=== PATIENT | female | born 1965 | race Two or more races ===

== ENCOUNTER → 2024-08-26 | Outpatient (CLI) | payer MEDICARE, OTHER, SELFPAY ==
[2024-08-26 11:09] LABS: Collection Type, Urine Clean Catch
[2024-08-26 11:29] LABS: Basophils % (Auto) 1 % (0-2.5); Eosinophils # (Auto) 0.1 Thou/mm3 (0.0-0.5); Eosinophils % (Auto) 1 % (0-10); Hematocrit 39.3 % (36.0-46.0); Hemoglobin 13.4 g/dL (12.0-16.0); Immature Granulocytes % (Auto) 0 % (0-0); Immature Granulocytes Auto 0.03 Thou/mm3 (0.00-0.00); Lymphocytes # (Auto) 2.5 Thou/mm3 (1.0-4.8); Lymphocytes % (Auto) 30 % (10-50); Mean Corpuscular HGB Conc 34.1 g/dl (31.0-37.0); Mean Corpuscular Hemoglobin 29.9 pg (25.0-35.0); Mean Corpuscular Volume 88 fL (80-100); Monocytes # (Auto) 0.4 Thou/mm3 (0.0-0.8); Monocytes % (Auto) 5 % (0-12); Neutrophils # (Auto) 5.3 Thou/mm3 (1.8-7.7); Neutrophils % (Auto) 63 % (37-80); Nucleated Red Blood Cell % 0 /100 WBC (0); Platelet Count 248 Thou/mm3 (140-440); RDW Standard Deviation 40.6 fL (36.4-46.3); Red Blood Count 4.48 Miln/mm3 (4.00-5.20); White Blood Count 8.4 Thou/mm3 (3.6-11.0)
[2024-08-26 11:40] LABS: Glucose Estimated Average 318 mg/dL (80-131); Hemoglobin A1C 12.7 % Hgb (4.8-6.0)
[2024-08-26 11:42] LABS: Creatinine MALB Rnd Ur 37 mg/dL (30-125); Microalbumin Creat Ratio 32 mg/gCrea (<30); Microalbumin, Random Urine 12 mg/L (0-300)
[2024-08-26 11:52] LABS: Bilirubin,Urine Negative (Negative); Blood,Urine 3+ (Negative); Clarity,Urine Turbid (Clear/Hazy); Color,Urine Colorless (Lt Yel-Yel); Glucose, Urine 4+ (Negative); Ketones,Urine Negative (Negative); Leukocyte Esterase,Urine Positive (Negative); Nitrite,Urine Negative (Negative); Protein,Urine Negative (Neg - Trace); RBC,Urine 226 /hpf (0-3); Specific Gravity,Urine 1.036 (1.001-1.035); Squamous Epithelial Cell,Urine 7 /hpf (0-5); Urobilinogen,Urine Negative mg/dL (0.0-1.0); WBC,Urine 24 /hpf (0-5)
[2024-08-26 12:16] LABS: Alanine Aminotransferase < 7 U/L (10-49); Albumin, Serum 4.4 gm/dL (3.4-4.8); Albumin/Globulin Ratio 1.8 (1.2-2.2); Alkaline Phosphatase 125 U/L (46-116); Anion Gap 8 (7-16); Aspartate Amino Transferase < 8 U/L (0-34); BUN/Creatinine Ratio 23 Ratio (12-20); Bilirubin,Total 0.4 mg/dL (0.3-1.2); Blood Urea Nitrogen 16 mg/dL (9-23); Calcium 9.4 mg/dL (8.3-10.6); Calcium (Corrected) 9.4 mg/dL (8.5-10.1); Carbon Dioxide 23.7 mMol/L (20.0-31.0); Cardiac Risk Estimate 5.1 RATIO (3.7-5.6); Chloride 102 mMol/L (98-107); Cholesterol 228 mg/dL (132-200); Creatinine (Component) 0.7 mg/dL (0.6-1.3); Globulin 2.4 gm/dL (2.3-3.5); Glucose 300 mg/dL (74-106); HDL Cholesterol 45 mg/dL (40-60); LDL Cholesterol,Calculated 141 mg/dL (0-130); Osmolality,Calculated 280 (275-295); Potassium 4.2 mMol/L (3.4-5.1); Sodium 134 mMol/L (136-145); Thyroid Stimulating Hormone 0.93 uIU/mL (0.55-4.78); Total Protein 6.8 gm/dL (5.7-8.2); Triglycerides 212 mg/dL (30-150); eGFR > 60 See Note
== END | disposition home or self-care (01) ==
LOC: COPL 09:50
PROVIDERS: PCP Family Medicine; Referring Provider Family Medicine; Visit Provider Family Medicine
DX: Z00.00 Encounter for general adult medical examination without abnormal findings (principal); E11.65 Type 2 diabetes mellitus with hyperglycemia; E78.2 Mixed hyperlipidemia; I10 Essential (primary) hypertension; D64.9 Anemia, unspecified
CPT/HCPCS: 36415; 80053; 80061; 81001; 82043; 82570; 83036; 84443; 85025

== ENCOUNTER → 2024-09-11 | Outpatient (CLI) | payer MEDICARE, OTHER, SELFPAY ==
--- NOTE | 2024-09-11 13:00 | XR_ITS ---
Examination: Pelvic ultrasound, transabdominal, complete Technique: Transabdominal ultrasound of the pelvis performed using grayscale imaging Date and time of exam: September 11, 2024 1309 hours INDICATIONS: Postmenopausal bleeding with vaginal burning sensation pelvic pain beginning one year ago FINDINGS: Uterus 10.2 x 3.6 x 5.7 cm Fundal uterine calcification 10 x 7 x 11 mm Endometrial stripe 0.3 cm Right ovary obscured by bowel gas Left ovary 2.3 x 1.0 x 2.1 cm arterial flow IMPRESSION: Uterine calcified area of fibroid degeneration 10 x 7 x 11 mm Normal endometrial stripe 0.3 cm
--- NOTE | 2024-09-11 13:00 | XR_ITS ---
Examination: Transvaginal ultrasound of the pelvis, complete Technique: Transvaginal sonographic images pelvis performed using hu scale imaging Exam date and time: September 11, 2024 1311 hours INDICATIONS: Postmenopausal bleeding and burning sensation in the pelvis beginning one year ago. Uterus 7.7 x 3.7 x 4.5 cm anteverted Calcified area fundal fibroid degeneration 13 x 6 x 12 mm Endometrial stripe on this study is 0.5 cm Ovaries obscured by bowel gas IMPRESSION: Abnormally thickened endometrial stripe on this study, differential would include endometrial hyperplasia, early malignant neoplasm of the uterus Recommend MRI pelvis follow-up pre and postcontrast
== END | disposition home or self-care (01) ==
PROVIDERS: PCP Obstetrics & Gynecology; Referring Provider Obstetrics & Gynecology; Visit Provider Obstetrics & Gynecology
DX: D25.9 Leiomyoma of uterus, unspecified (principal); R93.89 Abnormal findings on diagnostic imaging of other specified body structures
CPT/HCPCS: 76830; 76856

== ENCOUNTER 2024-09-30 07:00 | Day surgery (SDC) | payer MEDICARE, OTHER, SELFPAY ==
[2024-09-29 15:01] VITALS: BMI 24.7
[2024-09-30] VITALS (8 sets, daily range): BP systolic 103–130; BP diastolic 56–82; PULSE 77–92; RESP 12–18; TEMP 36.8–37.1; O2SAT 93–100; BMI 25.1
[2024-09-30] MEDS: SODIUM CHLORIDE 0.9% 100 ML IV (09:12)
[2024-09-30] MEDS: ONDANSETRON INJ 2 MG/ML INJ 2 ML 4 MG IV (09:16)
[2024-09-30] MEDS: DiphenhydrAMINE INJ 50 MG/ML VIAL 25 MG IV (09:16)
[2024-09-30] MEDS: fentaNYL CIT INJ 50 mCg/ML AMP 2ML (ASD USE ONLY) IV (09:19)
[2024-09-30] MEDS: MIDAZOLAM INJ 1 MG/ML VIAL 2 ML (ASD USE ONLY) 2 MG IV (09:19)
== END 2024-09-30 10:08 | disposition home or self-care (01) ==
PROVIDERS: PCP Family Medicine; Referring Provider Specialist; Visit Provider Specialist
PROC: (CPT 45331; principal; 2024-09-30 11:45)
DX: K64.3 Fourth degree hemorrhoids (principal)
CPT/HCPCS: 45350; A4649; J1200; J2250; J2405; J3010; J7050

== ENCOUNTER 2025-01-15 08:16 | Emergency (ER) | payer MEDICARE, OTHER, SELFPAY ==
[2025-01-15 08:27] VITALS: BP 154/83; PULSE 98; RESP 18; TEMP 36.8; O2SAT 96; BMI 25.3
[2025-01-15 09:00] VITALS: PULSE 90; RESP 18; O2SAT 96
--- NOTE | 2025-01-15 09:36 | EDNOTE_ITS ---
ED General RME/HPI General Chief complaint: Back Pain/Injury Stated complaint: BACK PAIN Time Seen by Provider: 01/15/25 08:41 Arrival date/time: 01/15/25 08:16 RME / HPI RME / HPI narrative: 59 year old female presents to the ED for evaluation of waxing and waning left flank pain beginning last night with radiation to to left side of abdomen. Additionally complains of lower back pain that radiates up to her neck. Accompanied by feeling fatigued and nausea. Reportedly had experienced similar pain in the past with UTIs and concerned she may have one today. Denies fevers, chills, sweats. Denies vomiting, diarrhea, constipation. Denies dysuria, urinary frequency and urgency. Patient also complains of both rectal and vaginal pressure-like pain with vaginal/rectal bleeding which she states is an ongoing problem and being worked up by both GI and [employer]. Related Data Home Medications ?Medication ?Instructions ?Recorded ?Confirmed lisinopril 40 mg tablet 40 mg PO QDAY 10/24/1909/30 fezolinetant 45 mg tablet (Veozah) 45 mg PO QDAY 06/0709/30/24 sitagliptin phosphate 100 mg 100 mg PO QDAY 06/07/24 0 09/30/24 tablet (Januvia) tizanidine 6 mg capsule 6 mg PO TID PRN Muscle Spasm 06/07/24 09/30/24 zolpidem 10 mg tablet (Ambien) 10 mg PO HS PRN Sleep 1 09/30/24 Held on 09/30/24. Instructions: Resume on 10/01/24. lorazepam 2 mg tablet (Ativan) 2 mg PO BID PRN Anxiety 06/10/24 09/30/24 Held on 09/30/24. Instructions: Resume on 10/01/24. empagliflozin 25 mg tablet 25 mg PO QDAY 09/30/2409/19 (Jardiance) oxycodone-acetaminophen 10 mg-325 1 tab PO Q4H PRN moe n 09/30/24 09/30/24 mg tablet Held on 09/30/24. Instructions: Resume on 10/01/24. Previous Rx's ?Medication ?Instructions ?Recorded lancets 28 gauge (Advocate Lancet) #100 ea 06/11/24 pen needle, diabetic 29 gauge x #100 ea 06/11/24 1/2 (Ultra-Thin II Insulin Pen [place]) flash glucose scanning reader #1 ea 06/12/24 (FreeStyle Kirstin 2 Power) flash glucose sensor (FreeStyle #1 ea 06/12/24 Kirstin 2 Sensor kit) insulin glargine 100 unit/mL (3 12 unit (0.12 mL) subc ut QAM #15 mL 06/12/24 mL) subcutaneous pen (Lantus Solostar U-100 Insulin) cephalexin 500 mg capsule 500 mg PO QID #28 caps 01/15 Allergies Allergy/AdvReac Type Severity Reaction Status Date / Time Penicillins Allergy Severe Hives Verified 09/30/24 08:12 ketorolac AdvReac Severe FLUSHED, Verified 09/30/24 08:12 HIGH BP Review of Systems Review of Systems Narrative Review of Systems: GEN: No fever, no chills, no weight loss, +feeling fatigued EYES: No discharge, no visual changes, no pain HEENT: No ear pain, no congestion, no sore throat PULM: No shortness of breath, no cough, no congestion CV: No chest pain, no dyspnea on exertion, no palpitations GI: + nausea, no vomiting, no diarrhea, + pain, no constipation : No frequency, no urgency, no dysuria MUSC/SKEL: No joint pain, +back pain SKIN: No rash HEME/LYMPH: Pt reports hx of rectal and vaginal bleeding which is being worked up by GI and [employer]. NEURO: No weakness, no headache Past Medical History Past Medical History NEUROLOGIC: Positive Neurological Disorders (trigeminal neuralgia) CARDIAC: Positive Cardiac Disorders, Hypercholesterolemia and Hypertension RESPIRATORY: Positive Pneumonia GASTROINTESTINAL: Positive Gastrointestinal Disorders and Hemorrhoids MUSCULOSKELETAL: Positive Musculoskeletal Disorders, Arthritis, Rheumatoid Arthritis and Fibromyalgia ENDOCRINE: Positive Endocrine Disorders, Diabetes Mellitus Type 2 and Hypothyroidism PSYCHO/SOCIAL: Positive Depression and Anxiety Family History FAMILY HISTORY: Negative Family Psychiatric Problems, Family Respiratory Disorders, Family Cardiac Disorders, Family Gastrointestinal Problems, Family Cancer, Family Surgery or Family Anesthesia Reaction Surgical History SURGICAL: Positive Open Reduction Internal Fixation (RIGHT ANKLE) and Tubal Ligation Social History SMOKING STATUS: Current every day smoker SUBSTANCE USE: does not use ED Exam Narrative Physical exam: GENERAL APPEARANCE: alert and oriented x 4, well-developed, well-nourished, no acute distress HEENT: Normocephalic, atraumatic; pupils equal, round, reactive to light; EOMI; mucous membranes pink, moist; oropharynx clear NECK: Supple LUNGS: CTABL; no wheezes, no rales, no rhonchi HEART: Regular rate, regular rhythm; normal S1, S2; no murmurs ABDOMEN: mild distention; normal BS; soft, diffuse tenderness, no guarding, no rebound; no masses, no organomegaly, no hernia BACK: bilateral CVA tenderness, SI joint tenderness EXTREMITIES: atraumatic; no edema NEUROLOGIC: awake; alert and oriented x4; cranial nerves II-XII grossly intact; no focal sensory or motor deficits PSYCHIATRIC: appropriate mood and affect SKIN: warm, dry, normal color; no rashes Course Quality Measures none Orders Category Date Time Status CT Screening NOW Care 01/15/25 13:[address] abdomen pelvis w con Stat Exams 01/15/25 13:28 Completed CBC Stat Lab 01/15/25 10:06 Completed CMP [Comprehensive Metabolic Panel] Stat Lab 01/15/25 09:10 Completed UA, C/S IF [Urinalysis, C/S if Indicated] Stat Lab 01/15/25 10:05 Completed Urine Culture Stat Lab 01/15/25 10:05 Received HYDROcodone*/APAP 5/325 [[place] 5/325] Med 01/15/25 16:33 Discontinued 1 tab PO X1 ONE Insulin Regular Med 01/15/25 16:33 Discontinued 5 unit IV X1 ONE Morphine Inj Med 01/15/25 10:33 Discontinued 5 mg IVP X1 ONE Morphine Inj Med 01/15/25 13:29 Discontinued 5 mg IVP X1 ONE Ondansetron Inj [Zofran Inj] Med 01/15/25 10:33 Discontinued 4 mg IVP X1 ONE Ondansetron Inj [Zofran Inj] Med 01/15/25 13:29 Discontinued 4 mg IVP X1 ONE Sodium Chloride 0.9% 1000 ml [Ns] 1,000 ml Med 01/15/25 10:33 Discontinued IV 999 mls/hr cefTRIAXone/D5w 1gm IV premix [Rocephin/D5w 1gm IV Med 01/15/25 10:33 Discontinued premix] 1 gm in 50 ml IV X1 Vital Signs Vital signs: Vital Signs Temperature 98.2 F 01/15/25 08:27 Pulse Rate 98 01/15/25 08:27 Respiratory Rate 18 01/15/25 08:27 Blood Pressure 154/83 H 01/15/25 08:27 Pulse Oximetry (%) 96 01/15/25 08:27 Oxygen Delivery Method Room Air 01/15/25 08:27 Pulse ox is 96% on room air which is adequate. Discharge Plan Plan Patient Disposition: HOME (Self Care) Prescriptions/Referrals Prescriptions/Med Rec: New cephalexin 500 mg capsule 500 mg PO QID Qty: 28 0RF No Action lisinopril 40 mg Tablet 40 mg PO QDAY oxycodone-acetaminophen 10-325 mg tablet 1 tab PO Q4H PRN (Reason: pain) Jardiance 25 mg tablet 25 mg PO QDAY zolpidem [Ambien] 10 mg Tablet 10 mg PO HS PRN (Reason: Sleep) tizanidine 6 mg Capsule 6 mg PO TID PRN (Reason: Muscle Spasm) Januvia 100 mg Tablet 100 mg PO QDAY Veozah 45 mg Tablet 45 mg PO QDAY lorazepam [Ativan] 2 mg Tablet 2 mg PO BID PRN (Reason: Anxiety) (DME) lancets [Advocate Lancet] 28 gauge misc See Rx Instructions .Route Qty: 100 0RF Rx Instructions: As directed (DME) pen needle, diabetic [Ultra-Thin II Ins Pen [place]] 29 gauge x 1/2 needle See Rx Instructions .Route Qty: 100 0RF Rx Instructions: As directed insulin glargine [Lantus Solostar U-100 Insulin] 100 unit/mL (3 mL) insulin pen 12 unit subcut QAM Qty: 15 2RF (DME) FreeStyle Kirstin 2 Sensor Kit See Rx Instructions .Route Qty: 1 0RF Rx Instructions: As directed (DME) FreeStyle [place] 2 Power Misc See Rx Instructions .Route Qty: 1 0RF Rx Instructions: As directed Referrals: No Primary/Family,Physician [Primary Care Provider] - In 1 week Problem List Clinical Impression: UTI (urinary tract infection), Vesicoureteral reflux Patient/Caregiver Discharge Instructions Education Materials: ED CYSTITIS Female Adult Print Language: Bulgarian Stand Alone Forms: [employer]ohana Award Info., Patient Portal Info Letter MDM Narrative MDM hospital course: Milagros Ramon am scribing for and in the presence of Dr. Grullon. 1340: Patient reports her lower abdominal pain has returned. States the pain initially had improved with the Morphine. We reviewed all the results, analysis, and treatment plans. Patient is amenable to discharge. Strict return precautions were outlined. Patient was discharged in stable condition. Clinical Information Provided by patient Medical Records Reviewed [facility] I reviewed admission from 06/07/2024 through 06/13/2024 for lower GI bleed and sepsis secondary to pneumonia. I reviewed urine culture from 06/07/2024 which showed mixed lucia. I reviewed the CT abdomen/pelvis performed May 2024 which showed bilateral hydronephrosis which may represent mild bilateral congenital ureteropelvic junction obstruction. Meds/Rx Considered, not Ordered None Labs/Rad/Tests considered, not Ordered None Chronic Illness/Social Conditions which may negatively complicate care or outcome(s)-explain: None or not applicable EKG EKG not done Lab Interpretation Labs: interpreted by ct Lab(s) interpretation(s): Patient hyperglycemic. UA shows UTI. Imaging Imaging interpretation: see narrative above Radiology reports / interpretation(s): Ordering Physician: Carissa Grullon MD Date of Service: 01/15/25 Procedure(s): CT abdomen pelvis w con Accession Number(s): [id number] cc: Bentley Moreno MD; NO PRIMARY/FAMILY,PHYSICIAN; Carissa Grullon MD~ Examination: CT abdomen with intravenous contrast CT pelvis with intravenous contrast 2-D coronal reconstructions 2-D sagittal reconstructions Date and time of exam:January 15, 2025 1444 hours Comparison June 07, 2024 INDICATIONS: Lower abdominal pain with difficulty urinating today. CTDI: vol (mGy) 7.11 DLP: (mGycm) 108 Technique: Multiple axial sections of the abdomen and pelvis have been obtained. 64 slice high-resolution scanner used. 3 mm axial sections have been obtained, post intravenous injection 60 cc [id number] 2-D sagittal, coronal reconstructions obtained. Low dose protocols were performed. One or more of the following dose reduction techniques were used; automated exposure control, adjustment of the mA and/or KV according to patient size, use of iterative reconstruction technique. Findings: 30 mm liver lesion with peripheral nodular enhancement consistent with hemangioma Absent gallbladder Common bile duct 6 mm No pancreatic or adrenal mass Bilateral moderate hydronephrosis with wall thickening of the pelvicalyceal systems and ureters, no ureteral calculi No bowel obstruction No diverticulitis Uterine fundal areas of calcification of fibroid degeneration Urinary bladder wall thickening with pericystic inflammatory change Air in the urinary bladder Prominent osteopenia IMPRESSION: Recommend repeat hepatic sonography to confirm hemangioma right lobe of the liver compared with the June 08, 2024 exam Moderate bilateral hydronephrosis, wall thickening of the pelvicalyceal systems and ureters, urinary bladder wall thickening most consistent with urinary tract infection, vesicoureteral reflux and cystitis, the appearance should be clinically correlated Dictated By: Bentley Moreno MD Signed By: <Electronically signed by Bentley Moreno MD in [place]> 01/15/25 1505 Medication Administration(s) Medication Administration History Discontinued Medications Hydrocodone Bitart/Acetaminophen (Hydrocodone/Apap 5/325 Tablet) 1 tab PO X1 ONE Stop: 01/15/25 16:34 Last Admin: 01/15/25 16:58 Dose: 1 tab Documented By: ANGY Ceftriaxone Sodium/Dextrose (Rocephin/D5w 1gm Iv Premix) 1 gm in 50 mls @ 100 mls/hr IV X1 ONE Stop: 01/15/25 11:02 Last Infusion: 01/15/25 12:11 Dose: Infused Documented By: Admin: 01/15/25 10:56 Dose: 100 mls/hr Documented By: ANGY Sodium Chloride (Ns) 1,000 mls @ 999 mls/hr IV .Q1H1M ONE Stop: 01/15/25 11:33 Last Infusion: 01/15/25 12:00 Dose: Infused Documented By: Admin: 01/15/25 10:55 Dose: 999 mls/hr Documented By: ANGY Insulin Human Regular (Insulin Hum Regular 1 Unit/0.01 Ml (Per Unit)) 5 unit IV X1 ONE Stop: 01/15/25 16:34 Last Admin: 01/15/25 16:58 Dose: 5 unit Documented By: VG Co-signed By: EF Morphine Sulfate (Morphine Sulf Inj 10 Mg/Ml Vial) 5 mg IVP X1 ONE Stop: 01/15/25 10:34 Last Admin: 01/15/25 10:57 Dose: 5 mg Documented By: VG Morphine Sulfate (Morphine Sulf Inj 10 Mg/Ml Vial) 5 mg IVP X1 ONE Stop: 01/15/25 13:30 Last Admin: 01/15/25 13:48 Dose: 5 mg Documented By: ANGY Ondansetron HCl (Ondansetron Inj 2 Mg/Ml Inj 2 Ml) 4 mg IVP X1 ONE Stop: 01/15/25 10:34 Last Admin: 01/15/25 10:57 Dose: 4 mg Documented By: ANGY Ondansetron HCl (Ondansetron Inj 2 Mg/Ml Inj 2 Ml) 4 mg IVP X1 ONE Stop: 01/15/25 13:30 Last Admin: 01/15/25 13:47 Dose: 4 mg Documented By: ANGY Diagnosis Most likely dx, and/or detailed dx discussion: UTI Dispositon Disposition: Discharge Home
[2025-01-15 09:52] LABS: Alanine Aminotransferase 10 U/L (10-49); Albumin, Serum 4.5 gm/dL (3.4-4.8); Albumin/Globulin Ratio 1.7 (1.2-2.2); Alkaline Phosphatase 111 U/L (46-116); Anion Gap 15 (7-16); Aspartate Amino Transferase 10 U/L (0-34); BUN/Creatinine Ratio 9 Ratio (12-20); Bilirubin,Total 0.3 mg/dL (0.3-1.2); Blood Urea Nitrogen 7 mg/dL (9-23); Chloride 102 mMol/L (98-107); Creatinine (Component) 0.8 mg/dL (0.6-1.3); Estimated Creatinine Clearance 66.9 mL/min (>60); Globulin 2.7 gm/dL (2.3-3.5); Osmolality,Calculated 290 (275-295); Potassium 3.4 mMol/L (3.4-5.1); Sodium 136 mMol/L (136-145); Total Protein 7.2 gm/dL (5.7-8.2); eGFR > 60 See Note
[2025-01-15 09:53] LABS: Glucose 473 mg/dL (74-106)
[2025-01-15 10:08] LABS: Collection Type, Urine Clean Catch
[2025-01-15 10:12] LABS: Basophils % (Auto) 0 % (0-2.5); Eosinophils % (Auto) 0 % (0-10); Hematocrit 43.6 % (36.0-46.0); Hemoglobin 15.7 g/dL (12.0-16.0); Immature Granulocytes % (Auto) 0 % (0-0); Immature Granulocytes Auto 0.05 Thou/mm3 (0.00-0.00); Lymphocytes # (Auto) 1.2 Thou/mm3 (1.0-4.8); Lymphocytes % (Auto) 9 % (10-50); Mean Corpuscular Hemoglobin 30.5 pg (25.0-35.0); Mean Corpuscular Volume 85 fL (80-100); Monocytes # (Auto) 0.7 Thou/mm3 (0.0-0.8); Monocytes % (Auto) 5 % (0-12); Neutrophils # (Auto) 11.9 Thou/mm3 (1.8-7.7); Neutrophils % (Auto) 86 % (37-80); Nucleated Red Blood Cell % 0 /100 WBC (0); Platelet Count 312 Thou/mm3 (140-440); RDW Standard Deviation 37.1 fL (36.4-46.3); Red Blood Count 5.15 Miln/mm3 (4.00-5.20); White Blood Count 13.8 Thou/mm3 (3.6-11.0)
[2025-01-15 10:14] LABS: Bacteria,Urine Rare; Bilirubin,Urine Negative (Negative); Blood,Urine 3+ (Negative); Color,Urine Colorless (Lt Yel-Yel); Glucose, Urine 4+ (Negative); Ketones,Urine 2+ (Negative); Leukocyte Esterase,Urine Positive (Negative); Nitrite,Urine Negative (Negative); Protein,Urine 1+ (Neg - Trace); RBC,Urine 1051 /hpf (0-3); Specific Gravity,Urine 1.031 (1.001-1.035); Squamous Epithelial Cell,Urine 2 /hpf (0-5); Urobilinogen,Urine Negative mg/dL (0.0-1.0); WBC,Urine 132 /hpf (0-5)
[2025-01-15 10:29] LABS: Clarity,Urine Hazy (Clear/Hazy); Culture Indicated,Urine Yes
[2025-01-15 10:36] VITALS: BP 164/90; PULSE 96; RESP 18; TEMP 36.7; O2SAT 100
[2025-01-15] MEDS: SODIUM CHLORIDE 0.9% 1000 ML 1,000 ML 999 ML IV (10:55)
[2025-01-15] MEDS: cefTRIAXone/D5w 1gm IV premix 1 GM/50 ML BAG IV (10:56)
[2025-01-15] MEDS: ONDANSETRON INJ 2 MG/ML INJ 2 ML 4 MG IVP ×2 (10:57→13:47)
[2025-01-15] MEDS: MORPHINE SULF INJ 10 MG/ML VIAL 5 MG IVP ×2 (10:57→13:48)
--- NOTE | 2025-01-15 13:00 | PC.NURSE ---
went to d/c pt. pt refusing d/c and requesting imaging for pelvic pain. provider notified.
--- NOTE | 2025-01-15 13:28 | XR_ITS ---
Examination: CT abdomen with intravenous contrast CT pelvis with intravenous contrast 2-D coronal reconstructions 2-D sagittal reconstructions Date and time of exam:January 15, 2025 1444 hours Comparison June 07, 2024 INDICATIONS: Lower abdominal pain with difficulty urinating today. CTDI: vol (mGy) 7.11 DLP: (mGycm) 108 Technique: Multiple axial sections of the abdomen and pelvis have been obtained. 64 slice high-resolution scanner used. 3 mm axial sections have been obtained, post intravenous injection 60 cc Isovue-370 2-D sagittal, coronal reconstructions obtained. Low dose protocols were performed. One or more of the following dose reduction techniques were used; automated exposure control, adjustment of the mA and/or KV according to patient size, use of iterative reconstruction technique. Findings: 30 mm liver lesion with peripheral nodular enhancement consistent with hemangioma Absent gallbladder Common bile duct 6 mm No pancreatic or adrenal mass Bilateral moderate hydronephrosis with wall thickening of the pelvicalyceal systems and ureters, no ureteral calculi No bowel obstruction No diverticulitis Uterine fundal areas of calcification of fibroid degeneration Urinary bladder wall thickening with pericystic inflammatory change Air in the urinary bladder Prominent osteopenia IMPRESSION: Recommend repeat hepatic sonography to confirm hemangioma right lobe of the liver compared with the June 08, 2024 exam Moderate bilateral hydronephrosis, wall thickening of the pelvicalyceal systems and ureters, urinary bladder wall thickening most consistent with urinary tract infection, vesicoureteral reflux and cystitis, the appearance should be clinically correlated
[2025-01-15 14:05] VITALS: BP 178/97; PULSE 98; RESP 16; TEMP 36.8; O2SAT 97
[2025-01-15] MEDS: HYDROcodone/APAP 5/325 TABLET 1 TAB PO (16:58)
[2025-01-15] MEDS: INSULIN HUM REGULAR 1 UNIT/0.01 ML (PER UNIT) 5 UNIT IV (16:58)
[2025-01-15 17:11] VITALS: BP 149/62; PULSE 95; RESP 18; TEMP 36.6; O2SAT 98
== END 2025-01-15 17:12 | disposition home or self-care (01) ==
PROVIDERS: Emergency Provider Emergency Medicine
DX: N39.0 Urinary tract infection, site not specified (principal); N13.70 Vesicoureteral-reflux, unspecified; N13.30 Unspecified hydronephrosis
CPT/HCPCS: 36415; 74177; 80053; 81001; 85025; 87077; 87086; 87186; 96365; 96375; 96376; 99285; A4649; J0696; J1815; J2270; J2405; J7030; Q9967; A9270

== ENCOUNTER → 2025-01-26 | Outpatient (CLI) | payer MEDICARE, OTHER, SELFPAY ==
--- NOTE | 2025-01-26 10:00 | XR_ITS ---
Examination: Screening digital mammography, bilateral Computer aided detection 3-D breast Tomosynthesis, bilateral Date and time of exam: January 26, 2025 0958 hours Compared to mammograms dating to September 28, 2008 Indication: Screening Technique: Nonmagnified MLO, CC views of the breasts to been obtained, reconstructed from 3-D Tomosynthesis images. R2 computer aided detection program utilized for evaluation of suspicious masses and/or abnormal calcifications. 3-D Tomosynthesis images obtained. Findings: The breasts are heterogeneously dense, which may obscure small masses Benign calcifications. No interval suspicious masses Impression: BI-RADS category II: Benign Findings. Recommend 1 year follow-up mammogram.
== END | disposition home or self-care (01) ==
LOC: CDIM 09:42
PROVIDERS: Referring Provider Family Medicine; Visit Provider Family Medicine
DX: Z12.31 Encounter for screening mammogram for malignant neoplasm of breast (principal); R92.1 Mammographic calcification found on diagnostic imaging of breast
CPT/HCPCS: 77063; 77067

== ENCOUNTER 2025-05-17 11:41 | Emergency (ER) | payer MEDICARE, OTHER, SELFPAY ==
--- NOTE | 2025-05-17 12:05 | XR_ITS ---
EXAMINATION: Ankle, right 3 views . Technique: Ankle AP, oblique, lateral 3 views Date and time of exam: May 17, 2025, 1222 hours INDICATIONS: Injury to the ankle today, ankle pain. FINDINGS: Old bimalleolar fractures No acute fracture Significant osteoarthritis tibiotalar joint IMPRESSION: No acute fracture
[2025-05-17 12:06] VITALS: BP 145/80; PULSE 96; RESP 18; TEMP 36.9; O2SAT 99
--- NOTE | 2025-05-17 12:10 | PD.EDFALL ---
ED Fall Injury RME/HPI General Chief Complaint: Fall Stated Complaint: FALL, R) LEG PAIN/SWELLING Time Seen by Provider: 05/17/25 11:55 Source: patient Arrival date/time: 05/17/25 11:41 60-year-old female with a history of type 2 diabetes, hypertension presents to the emergency room with a chief complaint of right ankle tenderness and swelling after a ground-level fall that occurred yesterday afternoon. Patient denies any head trauma. Mode of arrival: ambulatory Limitations: no limitations Related Data Home Medications ?Medication ?Instructions ?Recorded ?Confirmed lisinopril 40 mg tablet 40 mg PO QDAY 10/24/19 09/30/24 fezolinetant 45 mg tablet (Veozah) 45 mg PO QDAY 06/07/24 09/30/24 sitagliptin phosphate 100 mg 100 mg PO QDAY 06/07/24 09/30/24 tablet (Januvia) tizanidine 6 mg capsule 6 mg PO TID PRN Muscle Spasm 06/07/24 09/30/24 zolpidem 10 mg tablet (Ambien) 10 mg PO HS PRN Sleep 06/07/24 09/30/24 Held on 09/30/24. Instructions: Resume on 10/01/24. lorazepam 2 mg tablet (Ativan) 2 mg PO BID PRN Anxiety 06/10/24 09/30/24 Held on 09/30/24. Instructions: Resume on 10/01/24. empagliflozin 25 mg tablet 25 mg PO QDAY 09/30/24 09/30/24 (Jardiance) oxycodone-acetaminophen 10 mg-325 1 tab PO Q4H PRN pain 09/30/24 09/30/24 mg tablet Held on 09/30/24. Instructions: Resume on 10/01/24. Previous Rx's ?Medication ?Instructions ?Recorded lancets 28 gauge (Advocate Lancet) #100 ea 06/11/24 pen needle, diabetic 29 gauge x #100 ea 06/11/24 1/2 (Ultra-Thin II Insulin Pen Frakes) flash glucose scanning reader #1 ea 06/12/24 (FreeStyle Kirstin 2 [place]) flash glucose sensor (FreeStyle #1 ea 06/12/24 Kirstin 2 Sensor kit) insulin glargine 100 unit/mL (3 12 unit (0.12 mL) subcut QAM #15 mL 06/12/ mL) subcutaneous pen (Lantus Solostar U-100 Insulin) cephalexin 500 mg capsule 500 mg PO QID #28 caps 01/15/25 Allergies Allergy/AdvReac Type Severity Reaction Status Date / Time Penicillins Allergy Severe Hives Verified 05/17/25 11:45 ketorolac AdvReac Severe FLUSHED, Verified 05/17/25 11:45 HIGH BP Review of Systems Review of Systems Systems Reviewed: All systems reviewed, normal except as documented Constitutional Constitutional: Reports system reviewed and no additional complaints, except as documented, Denies fatigue, Denies fever(s), Denies headache(s) and Denies weakness Eyes Eyes: Reports system reviewed and no additional complaints, except as documented, Denies blurry vision and Denies change in vision ENT Ears, Nose, Mouth, and Throat: Reports system reviewed and no additional complaints, except as documented, Denies otalgia, Denies headache(s), Denies nasal congestion, Denies throat swelling and Denies vertigo Cardiovascular Cardiovascular: Reports system reviewed and no additional complaints, except as documented, Denies chest pain, Denies dyspnea and Denies dyspnea on exertion Respiratory Respiratory: Reports system reviewed and no additional complaints, except as documented, Denies chest congestion, Denies cough, Denies dyspnea, Denies dyspnea on exertion and Denies wheezing Gastrointestinal Gastrointestinal: Reports system reviewed and no additional complaints, except as documented, Denies abdominal pain, Denies cramping, Denies nausea and Denies vomiting Genitourinary Genitourinary: Reports system reviewed and no additional complaints, except as documented Musculoskeletal Musculoskeletal: Reports system reviewed and no additional complaints, except as documented, Reports arthralgias, Denies back pain, Reports joint swelling and Reports limited range of motion Integumentary/Breasts Skin/Breast: Reports system reviewed and no additional complaints, except as documented and Denies wounds Neurologic Neurologic: Reports system reviewed and no additional complaints, except as documented, Denies confusion, Denies headache(s), Denies lack of coordination, Denies vertigo and Denies weakness Psychiatric Psychiatric: Reports system reviewed and no additional complaints, except as documented, Denies anxiety, Denies confusion, Denies depression, Denies paranoia, Denies suicidal ideation and Denies tactile hallucinations Endocrine Endocrine: Reports system reviewed and no additional complaints, except as documented and Denies fatigue Hematologic/Lymphatic Hematologic/Lymphatic: Reports system reviewed and no additional complaints, except as documented and Denies lymphadenopathy Allergic/Immunologic Allergic/Immunologic: Reports system reviewed and no additional complaints, except as documented, Denies throat swelling, Denies urticaria and Denies wheezing Past Medical History Past Medical History NEUROLOGIC: Positive Neurological Disorders; Negative Seizures CARDIAC: Positive Hypercholesterolemia and Hypertension; Negative Cardiac Disorders or Congestive Heart Failure RESPIRATORY: Positive Pneumonia; Negative Chronic Obstructive Pulmonary Disease (COPD) or Asthma GASTROINTESTINAL: Positive Gastrointestinal Disorders and Hemorrhoids GENITOURINARY: Negative Genitourinary Disorders or Renal Disease MUSCULOSKELETAL: Positive Musculoskeletal Disorders, Arthritis, Rheumatoid Arthritis and Fibromyalgia ENDOCRINE: Positive Endocrine Disorders, Diabetes Mellitus Type 2 and Hypothyroidism; Negative Diabetes Mellitus Type 1 HEMATOLOGIC: Negative Blood Disorders or Sickle Cell Disease PSYCHO/SOCIAL: Positive Depression and Anxiety OTHER HISTORY: Negative Autoimmune Disease, Blood Transfusions or Anesthesia Reactions Family History FAMILY HISTORY: Negative Family Psychiatric Problems, Family Respiratory Disorders, Family Cardiac Disorders, Family Gastrointestinal Problems, Family Cancer, Family Surgery or Family Anesthesia Reaction Surgical History SURGICAL: Positive Open Reduction Internal Fixation and Tubal Ligation Social History SMOKING STATUS: Current every day smoker SUBSTANCE USE: does not use ED Exam General Limitations: Present no limitations General appearance: Present alert and in no apparent distress Head Head exam: Present atraumatic Eye Eye exam: Present normal appearance, PERRL and EOMI ENT ENT exam: Present normal exam, normal oropharynx and mucous membranes moist Neck Neck exam: Present normal inspection, full ROM and trachea midline Chest Chest inspection: Present normal inspection and symmetric chest wall rise Respiratory Respiratory exam: Present normal lung sounds bilaterally Cardiovascular Cardiovascular exam: Present regular rate, normal rhythm and normal heart sounds Abdominal Exam Abdominal exam: Present soft and normal bowel sounds Extremities Exam Extremities exam: Present normal inspection and full ROM Expanded Lower Extremity Exam Hip/Pelvis exam: Present normal inspection Upper leg exam: Present normal inspection Knee exam: Present normal inspection Lower leg exam: Present normal inspection Ankle exam: Present normal inspection, tenderness and swelling Gait: observed and limited by pain Back Exam Back exam: Present normal inspection and full ROM Neurological Exam Neurological exam: Present alert, oriented X3 and CN II-XII intact Psychiatric Psychiatric exam: Present normal affect and normal mood Skin Skin exam: Present warm, dry, intact and normal color Course Quality Measures none Orders Category Date Time Status XR ankle comp RT min 3V Stat Exams 05/17/25 12:05 Completed Acetaminophen Tab [Tylenol Tab] Med 05/17/25 12:05 Discontinued 650 mg PO X1 ONE Vital Signs Vital signs: Vital Signs Temperature 98.5 F 05/17/25 12:06 Pulse Rate 96 05/17/25 12:06 Respiratory Rate 18 05/17/25 12:06 Blood Pressure 145/80 H 05/17/25 12:06 Pulse Oximetry (%) 99 05/17/25 12:06 Oxygen Delivery Method Room Air 05/17/25 12:06 Fall MDM Narrative MDM Narrative:: 60-year-old female with a history of type 2 diabetes, hypertension presents to the emergency room with a chief complaint of right ankle tenderness and swelling after a ground-level fall that occurred yesterday afternoon. Patient denies any head trauma. Patient is hemodynamically stable and in no apparent distress Physical examination shows tenderness and swelling to the patient's right ankle. Patient states she is able to ambulate but is having difficulty and some limited range of motion. X-ray of the ankle was completed and was negative for any acute fracture or dislocation Patient was discharged and educated to follow-up with primary care provider in the next 24 to 48 hours and return to the emergency room for any evidence of worsening signs or symptoms Patient data External records reviewed:: [facility] previous records Clinical information provided by:: patient Social determinants that could affect healthcare access:: none Patient has the following chronic illnesses:: No chronic illness How is presenting disease/condition affected by chronic disease/condition?: no chronic disease Evaluation data The following diagnostics were reviewed and interpreted by me:: lab results and radiology exam(s) Lab and/or radiology exams considered but not ordered:: Labs and radiology exams considered and ordered Interpretation Summary: X-ray ankle-FINDINGS: Old bimalleolar fractures No acute fracture Significant osteoarthritis tibiotalar joint IMPRESSION: No acute fracture Medications / Prescriptions Medications or Prescriptions considered but not ordered:: Medication given Medication administrations:: Medication Administration History Discontinued Medications Acetaminophen (Acetaminophen 325 Mg Tablet) 650 mg PO X1 ONE Stop: 05/17/25 12:06 Last Admin: 05/17/25 12:12 Dose: 650 mg Documented By: Medication given Consultations Consultation(s) initiated? (list below): No Diagnosis Fall Differential Diagnosis: other (Ankle fracture/ankle dislocation/sprain or strain of ankle) Most likely diagnosis given after review of the tests above:: Ankle sprain strain Admission Indicated Admission indicated?: not indicated Admission Request Was there a request for admission?: No Disposition Plan Disposition Plan: Discharge Discharge Attestation Discharge Attestation: The patient and all family members were given an opportunity to ask questions and understood the discharge instructions. Discharge instructions specifically effects, indications for sooner follow up or return to the emergency department, and the expected course of current diagnosis. Patient condition: Stable Discharge Plan Plan Patient Disposition: HOME (Self Care) Discharge Disposition comment: Stable Prescriptions/Referrals Prescriptions/Med Rec: No Action lisinopril 40 mg Tablet 40 mg PO QDAY oxycodone-acetaminophen 10-325 mg tablet 1 tab PO Q4H PRN (Reason: pain) Jardiance 25 mg tablet 25 mg PO QDAY cephalexin 500 mg capsule 500 mg PO QID Qty: 28 0RF zolpidem [Ambien] 10 mg Tablet 10 mg PO HS PRN (Reason: Sleep) tizanidine 6 mg Capsule 6 mg PO TID PRN (Reason: Muscle Spasm) Januvia 100 mg Tablet 100 mg PO QDAY Veozah 45 mg Tablet 45 mg PO QDAY lorazepam [Ativan] 2 mg Tablet 2 mg PO BID PRN (Reason: Anxiety) (DME) lancets [Advocate Lancet] 28 gauge misc See Rx Instructions .Route Qty: 100 0RF Rx Instructions: As directed (DME) pen needle, diabetic [Ultra-Thin II Ins Pen Frakes] 29 gauge x 1/2 needle See Rx Instructions .Route Qty: 100 0RF Rx Instructions: As directed insulin glargine [Lantus Solostar U-100 Insulin] 100 unit/mL (3 mL) insulin pen 12 unit subcut QAM Qty: 15 2RF (DME) FreeStyle Kirstin 2 Sensor Kit See Rx Instructions .Route Qty: 1 0RF Rx Instructions: As directed (DME) FreeStyle Kirstin 2 [place] Misc See Rx Instructions .Route Qty: 1 0RF Rx Instructions: As directed Referrals: Miquel Giordano MD [Primary Care Provider, Family Practice] - In 1 week Problem List Clinical Impression: Sprain and strain of ankle Patient/Caregiver Discharge Instructions Education Materials: ED Ankle Sprain (Adult) Additional Instructions: Please follow-up with your primary care provider in the next 24 to 48 hours X-ray of the ankle was completed and was negative for any acute fractures or dislocation For any evidence of worsening signs or symptoms return to emergency room immediately Print Language: Wallisian Stand Alone Forms: Yohana Award Info., Work/School Release, Patient Portal Info Letter PA/GROUNDS MAINTENANCE SUPERVISOR Supervising Physician PA/GROUNDS MAINTENANCE SUPERVISOR Supervising Physician: Dr. Hills
[2025-05-17] MEDS: ACETAMINOPHEN 325 MG TABLET 650 MG PO (12:12)
== END 2025-05-17 13:29 | disposition home or self-care (01) ==
PROVIDERS: Emergency Provider Nurse Practitioner Family; PCP Family Medicine
DX: S93.401A Sprain of unspecified ligament of right ankle, initial encounter (principal); S96.911A Strain of unspecified muscle and tendon at ankle and foot level, right foot, initial encounter; W18.30XA Fall on same level, unspecified, initial encounter
CPT/HCPCS: 73610; 99283; A9270

== ENCOUNTER 2025-06-18 11:12 | Outpatient (AMB) | payer MEDICARE, SELFPAY ==
--- NOTE | 2025-06-18 11:26 | GYNCLNT_ITS ---
Vital Signs 06/18/25 11:28 Height 1.6 m Height Method Stated Weight 64.467 kg Weight Measurement Method Standing Scale BMI 25.2 BP 124/77 Blood Pressure Source Automatic Cuff Blood Pressure Location Right Upper Arm Position Sitting Respiration 18 Pulse 116 H Pulse Source Monitor Temp 98.7 F Temp Source Temporal Artery Scan Pulse Oximetry (%) 99 Oxygen Delivery Method Room Air Allergies/Home Meds Allergies & Medications Allergies Penicillins Allergy (Severe, Verified 06/18/25 11:30) Hives ketorolac Adverse Reaction (Severe, Verified 06/18/25 11:30) FLUSHED, HIGH BP Medication Reconciliation lisinopril 40 mg tablet 40 mg PO QDAY 10/24/19 [History Confirmed 06/18/25] fezolinetant 45 mg tablet (Veozah) 45 mg PO QDAY 06/07/24 [History Confirmed 06/18/25] sitagliptin phosphate 100 mg tablet (Januvia) 100 mg PO QDAY 06/07/24 [History Confirmed 06/18/25] tizanidine 6 mg capsule 6 mg PO TID PRN Muscle Spasm 06/07/24 [History Confirmed 06/18/25] zolpidem 10 mg tablet (Ambien) 10 mg PO HS PRN Sleep 06/07/24 [History Confirmed 06/18/25] Held on 09/30/24. Instructions: Resume on 10/01/24. lorazepam 2 mg tablet (Ativan) 2 mg PO BID PRN Anxiety 06/10/24 [History Confirmed 06/18/25] Held on 09/30/24. Instructions: Resume on 10/01/24. lancets 28 gauge (Advocate Lancet) #100 ea 06/11/24 [Rx Confirmed 06/18/25] pen needle, diabetic 29 gauge x 1/2 (Ultra-Thin II Insulin Pen [place]) #100 ea 06/11/24 [Rx Confirmed 06/18/25] flash glucose scanning reader (FreeStyle Kirstin 2 [place]) #1 ea 06/12/24 [Rx Confirmed 06/18/25] flash glucose sensor (FreeStyle Kirstin 2 Sensor kit) #1 ea 06/12/24 [Rx Confirmed 06/18/25] insulin glargine 100 unit/mL (3 mL) subcutaneous pen (Lantus Solostar U-100 Insulin) 12 unit (0.12 mL) subcut QAM #15 mL 06/12/24 [Rx Confirmed 06/18/25] empagliflozin 25 mg tablet (Jardiance) 25 mg PO QDAY 09/30/24 [History Confirmed 06/18/25] oxycodone-acetaminophen 10 mg-325 mg tablet 1 tab PO Q4H PRN pain 09/30/24 [History Confirmed 06/18/25] Held on 09/30/24. Instructions: Resume on 10/01/24. cephalexin 500 mg capsule 500 mg PO QID #28 caps 01/15/25 [Rx Confirmed 06/18/25] clobetasol 0.05 % topical ointment 1 applic topical QAM AND QPM 14 days #60 grams 06/18/25 [Rx] Intake Visit Data Collection New Patient or Established: Established Patient (seen at [facility] within 3 years) Reason for Visit:: REFERRAL Seen by Clinical Staff ONLY (RN/MA): No Nurse Unit Manager Required: No Do You Feel Safe at Home: Yes Authorities Contacted: N/A PCP or OBGYN visit in last 3 months: No Hx Now: No Are you currently on any form of Control: No Pain Present Currently: Yes Pain Scale Used: Riggins-[place]wood/Numerical Pain scale:: 10 Smoking Status Smoking Status: Current every day smoker Cessation Counseling Provided: BISI was advised that quitting smoking is the single most important factor to protect the health of themselves and their family. Discussed the benefits of quitting smoking with patient. Encouraged patient to quit smoking and provided Cessation assistance materials and resources. 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 1. Little interest or pleasure in doing things: not at all 2. Feeling down, depressed, or hopeless: not at all Total score: 0 PHQ-9 3. Trouble falling or staying asleep, or sleeping too much: Not at all 4. Feeling tired or having little energy: Not at all 5. Poor appetite or overeating: Not at all 6. Feeling bad about yourself - or that you are a failure or have let yourself or your family down: Not at all 7. Trouble concentrating on things, such as reading the newspaper or watching television: Not at all 8. Moving or speaking so slowly that other people could have noticed? - Or the opposite - being so fidgety or restless that you have been moving around a lot more than usual: not at all 9. Thoughts that you would be better off or of hurting yourself in some way: Not at all Total score: 0 If you checked off any problems, how difficult have these problems made it for you to do your work, take care of things at home, or get along with other people?: not difficult at all Source: Developed by Drs. Faisal Aguirre, Mairluz Loya, Medardo Herrera and colleagues, with an educational hussein from [employer]. Depression screen completed yes Social History Living Situation History Marital Status: Lives With: Family Housing: House Housing Other:: Pt lives with , dtr, and grand dtr Tobacco History Smoking Status: Current every day smoker Packs per Day: 1 Pack-Years: 19 Alcohol History Alcohol Intake: Current Domestic Abuse History Do You Feel Safe at Home: Yes History of Present Illness HPI Narrative Postmenopausal bleeding occurring daily for almost a year with occasional 2-day breaks, hard vaginal lips, bad vaginal odor Bisi Velazquez is a 60-year-old woman, 3 para 3, presenting on urgent referral for postmenopausal bleeding. She reports bleeding every day for almost a year with sometimes a 2-day break, and the bleeding has become so significant that she now wears diapers. She also reports hard vaginal lips and a bad odor. She is currently being treated by her primary OBGYN for vulvar atrophic vaginitis with estradiol cream, Claritin, prednisone, and petroleum jelly. The patient has a history of candidiasis, abnormal urine culture, obesity, and diabetes mellitus. Her diabetes is currently not well-controlled due to insurance issues, though she is applying for Medicare. She takes Jardiance, Trulicity, metformin, and lisinopril for hypertension. She was recently hospitalized in [place] for rectal bleeding and vomiting blood, which was managed with endoscopy and colonoscopy. She has experienced significant weight loss from 220 pounds and is having hair breakage. A previous biopsy showed no abnormalities. Medical History: - Diabetes mellitus, currently not well-controlled due to insurance issues - Hypertension - Obesity - History of candidiasis - History of abnormal urine culture - Hospitalization in [place] for rectal bleeding and vomiting blood, managed with endoscopy and colonoscopy Surgical History: - Endoscopy and colonoscopy during hospitalization in [place] for rectal bleeding and vomiting blood Obstetric History: - : 3, para 3, all vaginal deliveries Medications: - Estradiol cream for vulvar atrophic vaginitis - Claritin - Prednisone - Petroleum jelly - Jardiance for diabetes - Trulicity for diabetes - Metformin for diabetes - Lisinopril for hypertension Diagnostic Test Results and Labs: - Transvaginal ultrasound (09-11-2024): Endometrial stripe 0.5 cm, uterus measures 7.7 x 3.7 x 4.5 cm with calcified area in fundus showing degeneration, ovaries not visualized - CT scan (01-15-2025): Moderate bilateral hydronephrosis, wall thickening of pelvic calyxial systems and ureters, urinary bladder wall thickening consistent with urinary tract infection, vesico-ureteral reflux, and cystitis - Previous biopsy: No abnormalities Exam General General Appearance: alert, in no apparent distress and healthy appearing Head Head exam: atraumatic Neck Neck exam: Present normal inspection and trachea midline Chest Chest inspection: Present normal inspection and symmetric chest wall rise External exam: Present normal external exam; Absent tenderness Neuro Neurological exam: Present oriented X3 Psych Psychiatric exam: Present normal affect and normal mood Office Procedures [facility] Clinic LOC & Office Proc's Nursing/Assessment Patient Status: Established Patient OB Clinic Nursing Assessment: Medication Reconciliation, Update PMH in EMR and Vital Signs OB Clinic Coordination of Care: Complex Care and Chronic Disease 1-5, Education Complex Pt/Fam, Consent,records obtained, informed consent, Lab and Imaging orders, Results/Orders obtained and Staff clarify orders Established Patient Charge Established Patient Point Assignment: 110 Established Patient Point Charge: EP Level 3 (80-115) Assessment & Plan Diagnosis / Problem List (1) Lichen sclerosus et atrophicus: Status: Acute Plan Postmenopausal bleeding Assessment: Patient presents with daily postmenopausal bleeding for almost a year with only occasional 2-day breaks, requiring use of diapers. Transvaginal ultrasound from September 11, 2024 revealed abnormally thick endometrial stripe measuring 0.5 cm for a postmenopausal woman. Previous biopsy showed no abnormalities. Patient also reports hard vaginal lips and bad odor. Given the persistent bleeding and thickened endometrium, further evaluation is warranted to rule out endometrial pathology. Plan: - Perform biopsy under anesthesia at the hospital using a camera to look inside the uterus - Procedure will be scheduled in a couple of weeks Vulvar atrophic vaginitis Assessment: Patient is currently being treated by primary OBGYN for vulvar atrophic vaginitis and is on estradiol cream. Reports hard vaginal lips and bad odor, suggesting possible additional vulvar pathology that may require further evaluation. Plan: - Biopsy the external area to check for conditions like lichen planus or lichen sclerosis - Prescribe a strong steroid cream for relief - Prescription will be sent to the patient's pharmacy Diabetes mellitus Assessment: Patient has diabetes mellitus and is currently on Jardiance, Trulicity, and metformin. Diabetes is currently not well-controlled due to insurance issues. Plan: - Patient is applying for Medicare to address insurance issues affecting diabetes management
[2025-06-18 11:28] VITALS: BP 124/77; PULSE 116; RESP 18; TEMP 37.1; O2SAT 99; BMI 25.2
== END 2025-06-18 11:50 | disposition home or self-care (01) ==
LOC: HODSOBC 11:12
PROVIDERS: Supervising Provider Obstetrics & Gynecology; Visit Provider Obstetrics & Gynecology
DX: L90.0 Lichen sclerosus et atrophicus (principal); N95.0 Postmenopausal bleeding; N95.2 Postmenopausal atrophic vaginitis; E03.9 Hypothyroidism, unspecified; I10 Essential (primary) hypertension; E11.9 Type 2 diabetes mellitus without complications; Z71.6 Tobacco abuse counseling; E66.9 Obesity, unspecified; F17.210 Nicotine dependence, cigarettes, uncomplicated; Z79.899 Other long term (current) drug therapy; Z79.84 Long term (current) use of oral hypoglycemic drugs; Z79.4 Long term (current) use of insulin; Z88.0 Allergy status to penicillin; Z88.6 Allergy status to analgesic agent
CPT/HCPCS: 99213; G0463